=== PATIENT | male | born 1990 | race Caucasian/White ===

== ENCOUNTER 2018-02-05 05:24 | Emergency (ER) | payer OTHER, MEDICARE ==
[~2018-02-05] VITALS: Ht 182.9 cm; Wt 88.5 kg
[~2018-02-05 05:24] MED LIST: CARBAMAZEPINE200 M2 PO
--- NOTE | 2018-02-05 05:34 | ED AMS/SEIZURE/WEAK/DIZZY ---
History of Present Illness General Chief Complaint: Seizure Stated Complaint: SEIZURE Source: patient, family, old records Exam Limitations: confusion Vital Signs & Intake/Output Vital Signs & Intake/Output Vital Signs Date Time Temp Pulse Resp B/P B/P Pulse O2 O2 Flow FiO2 Mean Ox Delivery Rate 02/05 0801 98.3 78 22 131/85 98 Room Air 02/05 0656 97 Room Air 02/05 0532 96.6 114 18 124/97 97 Room Air Allergies Coded Allergies: NO KNOWN ALLERGIES (09/07/14) Triage Nurses Notes Reviewed? yes HPI: Patient arrives to the emergency department and a postictal state however his mentation is slowly improving. Patient suffers from epilepsy. Family states that he usually has multiple seizures however they only petite mall almost every night. Tonight he had 2 grand mal seizures. It is been "a while" since his last grand mal seizure. Patient missed a dose of medications last week and a dose again yesterday. Towards the nasion the patient is currently awake alert and oriented 3. Patient only complaint is a slight throbbing headache which is in the frontal region. This headache is similar to prior headaches that he's had after seizures. There is no radiation. There are no aggravating or mitigating factors. He denies any nausea or vomiting. Both seizures tonight occurred while in bed and he did not injure himself in any way that he knows of. (Aissatou WADSWORTH,Pelon Chilel) Reconcile Medications Carbamazepine 200 MG CPMP.12HR 4 TAB PO BID SEIZURES (Reported) Phenytoin Sodium Extended 100 MG CAPSULE 1 CAP PO TID SZ (Reported) (Narciso WADSWORTH,Danuta) Past History Travel History Traveled to [place] past 21 day No Medical History Any Pertinent Medical History? see below for history Neurological: epilepsy Cancer(s): BRAIN TUMOR History of MRSA: No History of VRE: No History of CDIFF: No Surgical History Surgical History: non-contributory Psychosocial History Who do you live with Significant Other What is your primary language Moroccan Tobacco Use: Current Daily Use Daily Tobacco Use Amount/Type: => 5 Cigarettes daily ETOH Use: denies use Illicit Drug Use: marijuana Family History Hx Contributory? No (Aissatou WADSWORTH,Pelon Chilel) Review of Systems Review of Systems Constitutional: Reports: no symptoms. EENTM: Reports: no symptoms. Respiratory: Reports: no symptoms. Cardiovascular: Reports: no symptoms. GI: Reports: no symptoms. Genitourinary: Reports: no symptoms. Musculoskeletal: Reports: no symptoms. Skin: Reports: no symptoms. Neurological/Psychological: Reports: see HPI, headache. Hematologic/Endocrine: Reports: no symptoms. Immunologic/Allergic: Reports: no symptoms. All Other Systems: Reviewed and Negative (Aissatou WADSWORTH,Pelon Chilel) Physical Exam Physical Exam General Appearance: well developed/nourished, alert, awake, moderate distress Head: atraumatic, normal appearance Eyes: Bilateral: PERRL, EOMI. Ears, Nose, Throat: normal pharynx, normal ENT inspection, BIT THE INSIDE OF HIS LEFT CHEEK, NOTHING TO SUTURE Neck: normal inspection, supple, full range of motion Respiratory: normal breath sounds, chest non-tender, no respiratory distress, lungs clear Cardiovascular: regular rate/rhythm, normal peripheral pulses Gastrointestinal: normal bowel sounds, soft, non-tender, no organomegaly Back: normal inspection, normal range of motion Extremities: normal range of motion Neurologic/Psych: no motor/sensory deficits, awake, alert, oriented x 3, normal gait, normal mood/affect Skin: intact, normal color, warm/dry Core Measures ACS in differential dx? No CVA/TIA Diagnosis No Sepsis Present: No Sepsis Focused Exam Completed? No (Aissatou WADSWORTH,Pelon Chilel) Progress Differential Diagnosis: electrolyte imbalance, seizure disorder Plan of Care: Orders Procedure Date/time Status TEGRETOL LEVEL 02/05 533 Complete DILANTIN 02/05 533 Complete COMPREHENSIVE METABOLIC PANEL 02/05 533 Complete CBC WITHOUT DIFFERENTIAL 02/05 533 Complete Laboratory Tests 02/05/18 0542: Anion Gap 22 H, Estimated GFR > 60, BUN/Creatinine Ratio 20.0, Glucose 103 H, Calcium 9.1, Total Bilirubin 0.5, AST 26, ALT 21, Alkaline Phosphatase 82, Total Protein 7.1, Albumin 4.5, Globulin 2.6, Albumin/Globulin Ratio 1.7, CBC w Diff NO MAN DIFF REQ, RBC 4.88, MCV 89.2, MCH 29.5, MCHC 33.1, RDW 13.7, MPV 8.1, Gran % 64.1, Lymphocytes % 23.7, Monocytes % 7.8, Eosinophils % 3.8, Basophils % 0.6, Absolute Granulocytes 4.7, Absolute Lymphocytes 1.8, Absolute Monocytes 0.6 , Absolute Eosinophils 0.3, Absolute Basophils 0, Phenytoin < 3.0 L, Carbamazepine < 3.0 L 02/05/2018 7:16:26 AM Patient signed out to me by Dr. Reyez. Currently being loaded with IV Dilantin. Likely for discharge home. PATIENT LOADED WITH DILANTIN. TOLERATED WELL, NO SEIZURE ACTIVITY IN THE ED. (Danuta Stuart MD) Initial ED EKG: none Hand-Off Endorsed To: Danuta Stuart MD Endorsed Time: 0700 Pending: other (DILANTIN LOAD) Comments: Laboratory results discussed with the patient. He now admits to not taking his antiseizure medications for the past few weeks. PT advised that that is very dangerous to do and that he really needs to take his medications as prescribed. (Pelon Reyez MD) Departure Departure Disposition: HOME OR SELF CARE Condition: Stable Clinical Impression Primary Impression: Seizure Referrals: Angi WADSWORTH,Sarbjit Garcia (PCP/Family) Additional Instructions: FOLLOW UP WITH YOUR NEUROLOGIST RETURN FOR ANY CONCERNS It is very important to take his antiseizure medications daily. Departure Forms: Customer Survey General Discharge Information (Pelon Reyez MD) Additional Instructions: FOLLOW UP WITH YOUR NEUROLOGIST RETURN FOR ANY CONCERNS It is very important to take his antiseizure medications daily. Departure Forms: Customer Survey General Discharge Information (Pelon Reyez MD)
[2018-02-05 06:05] LABS: ABSOLUTE BASOPHIL COUNT 0 /CUMM (0.0-0.2); ABSOLUTE EOSINOPHIL COUNT 0.3 /CUMM (0.0-0.7); ABSOLUTE GRANULOCYTE CT 4.7 /CUMM (1.4-6.5); ABSOLUTE LYMPH COUNT 1.8 /CUMM (1.2-3.4); ABSOLUTE MONOCYTE COUNT 0.6 /CUMM (0.10-0.60); BASOPHIL % 0.6 % (0.0-2.0); EOSINOPHIL % 3.8 % (0-5); GRANULOCYTE % 64.1 % (42.2-75.2); HEMATOCRIT 43.5 % (42-52); MEAN CORPUSCULAR HGB 29.5 PG (27.0-31.0); MEAN CORPUSCULAR HGB CONC 33.1 G/DL (33.0-37.0); MEAN CORPUSCULAR VOLUME 89.2 FL (80.0-94.0); MEAN PLATELET VOLUME 8.1 FL (7.4-10.4); PLATELET COUNT 227 /CUMM (130-400); RBC DISTRIBUTION WIDTH 13.7 % (11.5-14.5); RED BLOOD CELL CT 4.88 /CUMM (4.70-6.10); WHITE BLOOD CELL COUNT 7.4 /CUMM (4.8-10.8)
[2018-02-05] MEDS ORDERED: PHENYTOIN SODI100 MG PO (07:46)
[2018-02-05 08:01] VITALS: BP 131/85
== END 2018-02-05 08:25 ==
LOC: ERH 05:24
PROVIDERS: Emergency Medicine
DX: R56.9 Unspecified convulsions (principal)
CPT/HCPCS: 96365; J1165; J7040